=== PATIENT | female | born 1975 | race Caucasian/White ===

== ENCOUNTER 2021-09-28 09:40 | Emergency (ER) | payer BC, SELFPAY ==
--- NOTE | 2021-09-28 09:43 | ED.LOWEXIN ---
HPI - Extremity Injury (Lower) General Chief Complaint: Extremity Injury, Lower Stated Complaint: right knee pain Time Seen by Provider: 09/28/21 09:44 Source: patient and RN notes reviewed History of Present Illness HPI Narrative: Patient is a 46-year-old male with complaints of right knee pain and swelling. Patient denies of any injury or fall. 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 Patient denies any fevers, nausea or vomiting. Patient states that it started last night at 9 PM. Patient states that he does kneel frequently on that knee at work and has never had a history of bursitis. Patient that he took ibuprofen last night for the pain. No other acute complaints. No acute distress noted. Patient and spouse aware of the plan of care. Some parts of this dictation were generated by voice recognition software and may contain typographical and/or grammatical inaccuracies. Related Data Home Medications Medication Instructions Recorded Confirmed adalimumab 40 mg/0.8 mL 40 mg subcut [id number] 09/28/21 09/28/21 subcutaneous syringe kit (Humira) amlodipine 5 mg tablet 5 mg PO DAILY 09/28/21 09/28/21 lisinopril 40 mg tablet 40 mg PO BID 09/28/21 09/28/21 omeprazole 40 mg capsule,delayed 40 mg PO DAILY 09/28/21 09/28/21 release Allergies Allergy/AdvReac Type Severity Reaction Status Date / Time latex Allergy Intermediate Rash Verified 09/28/21 09:58 Review of Systems Review of Systems: CONSTITUTIONAL: Denies fever, chills, or sweats. EYES: Denies visual changes, redness, or discharge. ENT: Denies rhinorrhea, congestion, sore throat, or otalgia. CARDIOVASCULAR: Denies chest pain, palpitations, or edema. RESPIRATORY: Denies cough or dyspnea. GASTROINTESTINAL: Denies abdominal pain, nausea, vomiting, or diarrhea. GENITOURINARY: Denies dysuria or hematuria. SKIN: Denies rash or itching. MUSCULOSKELETAL: Reports of redness, swelling and pain to the right knee NEUROLOGIC: Denies headache, numbness, or weakness. All other systems reviewed are negative, except as documented in HPI. PMFSH Comments At the time of my signature, I reviewed and agree with the nursing past medical, surgical, social, and family history. There is no relevant family history pertinent to the patient complaint. Exam Narrative: GENERAL: This is a well-nourished, well-developed patient, in no apparent distress. HEAD: normocephalic, atraumatic. EYES: PERRL. Sclera clear/white. Vision is grossly intact. EARS: External ears normal NOSE: External nose normal with no obvious nasal discharge, nares without redness, no rhinorrhea. THROAT: Mucous membranes moist NECK: Neck supple SKIN: warm, intact with no suspicious lesions or rash, good texture and turgor. NEURO: awake, alert, and oriented to person, place and time. There were no obvious focal neurologic abnormalities. EXTREMITIES: Erythemic tender right knee bursitis. Range of motion of right lower extremity within normal limits without any obvious deformity. Positive strong right pedal pulse with capillary refill less than 2 seconds Course Course Level of Care: Express Care Visit Vital Signs Vital signs: Vital Signs Temperature 98 F 09/28/21 09:46 Pulse Rate 111 H 09/28/21 09:46 Respiratory Rate 18 09/28/21 09:46 Blood Pressure 153/93 H 09/28/21 09:46 Pulse Oximetry 98 09/28/21 09:46 Oxygen Delivery Room Air 09/28/21 09:46 Temperature 98 F 09/28/21 09:46 Pulse Rate 111 H 09/28/21 09:46 Respiratory Rate 18 09/28/21 09:46 Blood Pressure 153/93 H 09/28/21 09:46 Pulse Oximetry 98 09/28/21 09:46 Oxygen Delivery Room Air 09/28/21 09:46 Reviewed-patient is informed that they may have pre-hypertension or hypertension based on a blood pressure reading in the department. I recommend the patient call the primary care provider listed on their discharge instructions or a physician of their choice this week to arrange follow-up for further evaluation o
[2021-09-28 09:46] VITALS: BP 153/93; PULSE 111; RESP 18; TEMP 36.6; O2SAT 98
== END 2021-09-28 10:12 | disposition home or self-care (01) ==
PROVIDERS: Emergency Provider Nurse Practitioner Family; PCP Physician Assistant
DX: M70.51 Other bursitis of knee, right knee (principal); I10 Essential (primary) hypertension; K50.90 Crohn's disease, unspecified, without complications; K21.9 Gastro-esophageal reflux disease without esophagitis; M19.90 Unspecified osteoarthritis, unspecified site; Z86.14 Personal history of Methicillin resistant Staphylococcus aureus infection
CPT/HCPCS: 99203; G0463